=== PATIENT | male | born 2000 | race Caucasian/White ===

== ENCOUNTER 2024-11-25 05:49 | Emergency (ER) | payer OTHER ==
[2024-11-25] MEDS ORDERED: Divalproex Sodium 250 MG ER.TAB ONE (06:22)
[2024-11-25] MEDS ORDERED: Lidocaine 1% w/Epinephrine 1:100K 20 ML VIAL ONE (06:26)
[2024-11-25] MEDS ORDERED: Bacitracin 1 PK ONE (06:27)
[2024-11-25 06:31] LABS: #Basophils 0.1 thou/uL (0.0-0.2); #Eosinophils 0.2 thou/uL (0.0-0.7); #Lymphocytes 1.3 thou/uL (1.20-3.40); #Monocytes 1.1 thou/uL (0.11-0.59); #Neutrophils 11.1 thou/uL (1.40-6.50); %Basophils 0.9 % (0.0-1.0); %Eosinophils 1.4 % (0.0-10.0); %Lymphocytes 9.4 % (21.0-51.0); %Neutrophils 80.3 % (42.0-75.0); Hematocrit 45.9 % (42.0-52.0); Hemoglobin 14.8 g/dL (14.0-18.0); Mean Corpuscular HGB CONC 32.3 g/dL (32.0-36.0); Mean Corpuscular Hemoglobin 28.5 pg (27.0-31.0); Mean Corpuscular Volume 88.3 fl (78.0-98.0); Mean Platelet Volume 5.9 fL (7.4-10.4); Platelet Count 235 10x3/uL (130-400); RBC Distribution Width 11.4 % (11.5-14.5); White Blood Cell (WBC) Count 13.9 10x3/uL (4.8-10.8)
[2024-11-25 06:46] LABS: ALT (SGPT) 17 U/L (Less than 45); AST (SGOT) 25 U/L (11-34); Albumin 4.2 g/dL (3.1-4.5); Alkaline Phosphatase 78 U/L (40-110); Anion Gap 12 mmol/L (10-20); BUN (Urea Nitrogen) 12 mg/dL (8.9-20.6); Bilirubin, Total 0.4 mg/dL (0.3-1.2); Calc. Creatinine Clearance 0 mL/min (70-130); Calcium 9.1 mg/dL (7.8-10.44); Carbon Dioxide 25 mmol/L (22-29); Chloride 106 mmol/L (98-107); Estimated GFR 112; Globulin 2.7 g/dL (2.4-3.5); Glucose 91 mg/dL (70-105); Potassium 4.1 mmol/L (3.5-5.1); Protein, Total 6.9 g/dL (6.0-8.3); Sodium 139 mmol/L (136-145)
[2024-11-25] MEDS ORDERED: Acetaminophen 325 MG TAB ONE (07:10)
== END 2024-11-25 08:45 ==
LOC: NAV ERS 05:49 → EEVIPCON 05:49 → NAV ERS 08:45
DX: S22.060A Wedge compression fracture of T7-T8 vertebra, initial encounter for closed fracture (principal); S22.070A Wedge compression fracture of T9-T10 vertebra, initial encounter for closed fracture; S01.01XA Laceration without foreign body of scalp, initial encounter; S20.221A Contusion of right back wall of thorax, initial encounter; S20.411A Abrasion of right back wall of thorax, initial encounter; G40.909 Epilepsy, unspecified, not intractable, without status epilepticus; X58.XXXA Exposure to other specified factors, initial encounter; Z87.891 Personal history of nicotine dependence
CPT/HCPCS: 12002; 36415; 70450; 72128; 80053; 84146; 85025